=== PATIENT | male | born 1960 | race Caucasian/White ===

== ENCOUNTER 2018-06-12 00:25 | Emergency (ER) | payer MEDICAID ==
--- NOTE | 2018-06-12 01:19 | EDM.PDOC ---
ED HPI GENERAL MEDICAL PROBLEM - General Chief Complaint: Cardiovascular Problem Stated Complaint: HIGH BLOOD PRESSURE Time Seen by Provider: 06/12/18 00:50 Source of Information: Reports: Patient, Family History Limitations: Reports: No Limitations - History of Present Illness INITIAL COMMENTS - FREE TEXT/NARRATIVE: 58-year-old male with a history of hypertension, diabetes and coronary artery disease wasn't feeling well earlier today so he took his blood pressure and it was 150/110 which is higher than it normally is. He continued to take his blood pressure frequently as the day went on and continued to go up until it hit a high of 200/120 so he came into the emergency room. Now that he is here it is 178/98. He has not missed any blood pressure medications, but he has not been following his diet and not watching salt intake. He felt a little short of breath and dizzy this afternoon. Onset: Unknown/Unsure Severity: Mild Associated Symptoms: Reports: Shortness of Breath, Other (Dizziness). Denies: Confusion, Chest Pain, Weakness Headache Pain Score (Numeric/FACES): 4 - Related Data Allergies Allergy/AdvReac Type Severity Reaction Status Date / Time No Known Allergies Allergy Verified 06/12/18 00:41 Home Meds: Home Meds Acetaminophen/Caffeine [Excedrin Tension Headache] 2 tab PO Q6HR PRN 05/22/15 [ History] metFORMIN HCl [Metformin HCl ER] 500 mg PO DAILY 05/22/15 [History] sitaGLIPtin Phos/Metformin HCl [Janumet Xr 50-1,000 mg Tablet] 1 each PO BID 04/28 [History] Canagliflozin [Invokana] 300 mg PO DAILY 06/12/18 [History] Carvedilol 12.5 mg PO BID 06/12/18 [History] Losartan [Cozaar] 100 mg PO DAILY 06/12/18 [History] atorvaSTATin [Lipitor] 40 mg PO BEDTIME 06/12/18 [History] Past Medical History Cardiovascular History: Reports: CAD, High Cholesterol, Hypertension, [place] Endocrine/Metabolic History: Reports: Diabetes, Type II Oncologic (Cancer) History: Reports: Renal - Past Surgical History Cardiovascular Surgical History: Reports: Coronary Artery Bypass Male Surgical History: Reports: Other (See Below) Other Male Surgeries/Procedures: partial left nephrectomy Social & Family History - Tobacco Use Smoking Status *Q: Never Smoker - Caffeine Use Caffeine Use: Reports: Soda - Recreational Drug Use Recreational Drug Use: No ED ROS GENERAL - Review of Systems Review Of Systems: See Below Constitutional: Denies: Fever, Chills HEENT: Reports: No Symptoms Respiratory: Reports: Shortness of Breath. Denies: Cough Cardiovascular: Reports: Lightheadedness. Denies: Chest Pain, Palpitations GI/Abdominal: Denies: Abdominal Pain, Nausea, Vomiting : Reports: No Symptoms Skin: Reports: No Symptoms Neurological: Reports: Dizziness. Denies: Headache ED EXAM, GENERAL - Physical Exam Exam: See Below Exam Limited By: No Limitations General Appearance: Alert, No Apparent Distress, Anxious Eye Exam: Bilateral Eye: Normal Inspection Respiratory/Chest: No Respiratory Distress, Lungs Clear Cardiovascular: Regular Rate, Rhythm. No: Extra Beats GI/Abdominal: Soft, Non-Tender Extremities: Normal Inspection. No: Pedal Edema Neurological: Alert, Oriented Psychiatric: Normal Affect, Normal Mood Skin Exam: Warm, Dry Course - Vital Signs Last Recorded V/S: Last Vital Signs Temp 95.4 F 06/12/18 00:38 Pulse 74 06/12/18 01:44 Resp 14 06/12/18 00:38 BP 161/92 H 06/12/18 01:44 Pulse Ox 96 06/12/18 00:38 - Orders/Labs/Meds Labs: Laboratory Tests 06/12/18 06/12/18 06/12/18 Range/Units 01:26 01:26 01:26 WBC 4.8 (4.5-11.0) K/uL RBC 4.77 (4.30-5.90) M/uL Hgb 13.6 (12.0-15.0) g/dL Hct 41.1 (40.0-54.0) % MCV 86 (80-98) fL MCH 29 (27-31) pg MCHC 33 (32-36) % Plt Count 184 (150-400) K/uL Neut % (Auto) 47 (36-66) % Lymph % (Auto) 38 (24-44) % [place] % (Auto) 12 H (2-6) % Eos % (Auto) 3 (2-4) % Baso % (Auto) 0 (0-1) % Sodium 140 (140-148) mmol/L Potassium 3.6 (3.6-5.2) mmol/L Chloride 102 (100-108) mmol/L Carbon Dioxide 26 (21-32) mmol/L Anion Gap 11.8 (5.0-14.0) mmol/L BUN 21 H (7-18) mg/dL Creatinine 1.4 H (0.8-1.3) mg/dL Est Cr Clr Drug Dosing 57.94 mL/min Estimated GFR (MDRD) 52 L (>60) Glucose 125 H (74-106) mg/dL Calcium 9.0 (8.5-10.1) mg/dL Troponin I < 0.017 (0.000-0.056) ng/mL - Re-Assessments/Exams Free Text/Narrative Re-Assessment/Exam: 06/12/18 01:18 CBC, BMP and troponin were obtained. Departure - Departure Time of Disposition: 02:19 Disposition: Home, Self-Care 01 Condition: Good Clinical Impression: Hypertension Qualifiers: Hypertension type: essential hypertension Qualified Code(s): I10 - Essential ( primary) hypertension Instructions: Hypertension Referrals: Dennys Fine Sr, MD [Primary Care Provider] - Forms: ED Department Discharge Care Plan Goals: Stay hydrated and be careful with salt intake over the next several days. Discuss your kidney function tests with Dr. Fine next week and consider rechecking the levels. Continue your current medications.
[2018-06-12 01:44] VITALS: BP 161/92
== END 2018-06-12 02:19 | disposition home or self-care (01) ==
LOC: JP.ED 00:25
DX: I11.0 Hypertensive heart disease with heart failure (principal); E11.9 Type 2 diabetes mellitus without complications; E78.00 Pure hypercholesterolemia, unspecified; I25.2 Old myocardial infarction; Z79.84 Long term (current) use of oral hypoglycemic drugs; Z79.899 Other long term (current) drug therapy
CPT/HCPCS: 36415; 80048; 84484; 85025; 99284

== ENCOUNTER 2022-09-04 06:53 | Day surgery (SDC) | payer OTHER ==
[2022-09-04] MEDS ORDERED: fentaNYL 50 MCG/ML SDV ONE (07:27)
[2022-09-04] MEDS ORDERED: Midazolam 1 MG/ML 2 ML SDV ONE (07:27)
[2022-09-04] MEDS ORDERED: Propofol 200 MG/20 ML SDV ONE (07:27)
[2022-09-04] MEDS ORDERED: Sodium Chloride 0.9% 1,000 ML IV SCH (07:30)
[2022-09-04 10:05] VITALS: BP 139/95; PULSE 80
[2022-09-04] MEDS ORDERED: Iopamidol 612 MG/ML 100 ML Bottle IV PRN (11:23)
[2022-09-04] MEDS ORDERED: Sodium Chloride 0.9% 10 ML Syringe FLUSH PRN (11:23)
[2022-09-04] MEDS ORDERED: Sodium Chloride 0.9% 50 ML IV ONE (11:23)
[2022-09-04] MEDS ORDERED: Iopamidol 612 MG/ML 30 ML SDV PO ONE (11:23)
== END 2022-09-04 11:45 | disposition home or self-care (01) ==
LOC: JP.SDS 06:53
PROVIDERS: ATTEND Internal Medicine
DX: K63.9 Disease of intestine, unspecified (principal); I10 Essential (primary) hypertension; E78.5 Hyperlipidemia, unspecified; I25.10 Atherosclerotic heart disease of native coronary artery without angina pectoris; J45.909 Unspecified asthma, uncomplicated; Z79.899 Other long term (current) drug therapy; Z98.890 Other specified postprocedural states
CPT/HCPCS: 36415; 45378; 74177; 82565; J2250; J2704; J3010; J3490; J7030; Q9967